=== PATIENT | male | born 1945 | race Caucasian/White ===

== ENCOUNTER 2016-09-01 10:34 | Outpatient (CLI) | payer OTHER ==
--- NOTE | 2016-09-01 14:24 | DIAGNOSTIC IMAGING REPORT ---
PROCEDURE: MR UPPER EXTREMITY W/O CONT-RT INDICATION: NEW PAIN;SWELLING [facility] JOINT TECHNIQUE: PD, gradient, and STIR coronal images. PD, FAT-SAT PD, and STIR axial images. PD and FAT-SAT PD sagittal images. COMPARISON: None. 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 There are mild degenerative changes of the scaphoid distally. There is a 18 x 6 x 5 mm multiloculated cystic collection overlying the surgical site corresponding to the skin marker.. There are mild degenerative changes of the trapezoid distally, radiocarpal joint and triquetrum. The triangular fibrocartilage is unremarkable. There is fluid around the pisiform. Normal flexor and extensor tendons. IMPRESSION: 1. 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 2. Mild degenerative changes of the scaphoid, trapezoid, triquetrum and radiocarpal joint 3. Fluid around the pisiform which may represent inflammatory changes.
== END 2016-09-01 23:00 ==
LOC: MRI SRH 10:34
DX: M18.9 Osteoarthritis of first carpometacarpal joint, unspecified (principal); M19.031 Primary osteoarthritis, right wrist; Z98.890 Other specified postprocedural states